=== PATIENT | female | born 1985 | race Caucasian/White ===

== ENCOUNTER 2025-05-29 00:38 | Emergency (ER) | payer MEDICAID ==
[~2025-05-29] VITALS: Ht 152.4 cm; Wt 81.0 kg
[2025-05-29 00:45] VITALS: O2SAT 100
[2025-05-29] MEDS ORDERED: T3 PO (01:11)
[2025-05-29] MEDS: ONDANSETRON 4MG ODT PO ONE (01:24)
[2025-05-29 01:26] VITALS: BP 121/71; PULSE 66; RESP 20; TEMP 36.7; O2SAT 100
[2025-05-29] MEDS: ACETAMINOPHEN WITH CODEINE 300/30MG TABLET PO ONE (01:26)
== END 2025-05-29 01:35 | disposition home or self-care (01) ==
LOC: ER 00:38
DX: K08.89 Other specified disorders of teeth and supporting structures (principal); Z79.899 Other long term (current) drug therapy
CPT/HCPCS: 99283; Q0162